=== PATIENT | male | born 1990 | race Caucasian/White ===

== ENCOUNTER 2024-02-21 10:38 | Emergency (ER) | payer OTHER ==
[2024-02-21 10:50] VITALS: BP 126/73; PULSE 71; RESP 16; TEMP 98.1; BMI 26.3
[2024-02-21] MEDS ORDERED: ACETAMINOPHEN 500 MG TABLET (FP) ONE (11:26)
[2024-02-21] MEDS: ACETAMINOPHEN 500 MG TABLET (FP) PO ONE (11:29)
== END 2024-02-21 13:07 | disposition home or self-care (01) ==
LOC: JERFT 10:38
DX: S40.912A Unspecified superficial injury of left shoulder, initial encounter (principal); W01.198A Fall on same level from slipping, tripping and stumbling with subsequent striking against other object, initial encounter; Y93.6A Activity, physical games generally associated with school recess, summer camp and children
CPT/HCPCS: 73030-TC-LT-FY; 99283-25